=== PATIENT | male | born 1980 | race Caucasian/White ===

== ENCOUNTER 2023-06-17 11:14 | Emergency (ER) | payer MEDICAID, SELFPAY ==
[2023-06-17 11:22] VITALS: BP 127/95; PULSE 90; RESP 18; TEMP 36.7; O2SAT 97; BMI 36.9
== END 2023-06-17 12:49 | disposition left against medical advice (07) ==
PROVIDERS: Emergency Provider Emergency Medicine Emergency Medical Services
DX: Z53.21 Procedure and treatment not carried out due to patient leaving prior to being seen by health care provider (principal)